=== PATIENT | male | born 1945 | race Caucasian/White ===

== ENCOUNTER 2018-10-13 06:30 | Observation (INO) | payer OTHER ==
[~2018-10-13] VITALS: Ht 167.6 cm; Wt 78.9 kg
[2018-10-13] VITALS (19 sets, daily range): BP systolic 114–159; BP diastolic 70–96
[~2018-10-13 06:30] MED LIST: ASPIRIN325 OR; EFFIENT10 MG PO; FISH OIL 1,2001 EAC3 PO; LIPITOR40 MG PO; LISINOPRIL2.5 MG PO; NITROGLYCERIN0.4 MG SL; SIMVASTATIN80 MG PO; TOPROL XL25 MG PO
[2018-10-13 07:42] LABS: HEMOGLOBIN 14.6 gm/dL (14.0-18.0); MCH 31.9 pg (26.0-34.0); MCHC 34.7 g/dL (28.0-37.0); MCV 91.9 fL (80.0-100.0); RBC 4.57 mil/uL (4.50-6.00); RDW 12.9 % (10.5-14.5); WBC 8.1 thou/uL (4.0-11.0)
[2018-10-13] MEDS ORDERED: CRESTOR20 MG PO (07:43)
[2018-10-13] MEDS ORDERED: BYSTOLIC 5 MG5 M1 PO (07:44)
[2018-10-13] MEDS ORDERED: FLOMAX0.4 MG PO (07:45)
[2018-10-13] MEDS ORDERED: TRAMADOL 50 MG50 MG PO (07:45)
[2018-10-13 07:53] LABS: CALCIUM 9.9 mg/dL (8.5-10.1); POTASSIUM 3.7 mmol/L (3.5-5.1)
[2018-10-14] VITALS: BP 135/77
[2018-10-14 05:13] VITALS: BP 130/70
[2018-10-14 05:37] LABS: HEMOGLOBIN 13.8 gm/dL (14.0-18.0); MCH 32.1 pg (26.0-34.0); MCHC 35.5 g/dL (28.0-37.0); MCV 90.4 fL (80.0-100.0); RBC 4.31 mil/uL (4.50-6.00); RDW 12.5 % (10.5-14.5); WBC 8.7 thou/uL (4.0-11.0)
[2018-10-14 05:55] LABS: ALBUMIN 3.3 g/dL (3.4-5.0); CALCIUM 8.5 mg/dL (8.5-10.1); CREATININE 0.9 mg/dL (0.7-1.3); POTASSIUM 3.6 mmol/L (3.5-5.1); TOTAL BILIRUBIN 1.9 mg/dL (<0.1-1.0); TOTAL PROTEIN 6.8 g/dL (6.4-8.2); TROPONIN-I 0.08 ng/mL (<0.06)
[2018-10-14 07:40] VITALS: BP 134/74
[2018-10-14] MEDS ORDERED: EFFIENT10 MG PO (07:40)
[2018-10-14] MEDS ORDERED: ASPIRIN325 PO (07:40)
[2018-10-14 09:26] VITALS: BP 134/74
--- NOTE | 2018-10-14 13:44 | EKG ---
[place] [address] [facility] [place] [address] ELECTROCARDIOGRAM REPORT Name: JULIO CESAR ANN Room #: 217-[facility].R.#: [id number] Admission: 10/13/18 Attend Phys: Job Solorio MD, Discharge: 10/14/18 Date of : 43 Report #: [id number] THIS REPORT FOR: //name// [facility] Test Date: 2018-10-14 Test Time: 07:46:33 Pat Name: JULIO CESAR ANN Department: Room: 217 Gender: M Probation Agent: [email or web address] : 1945 Requested By: Job Solorio Order Number: [id number] MD: Fito Jarvis Measurements Intervals Mission Rate: 54 P: -7 NC: 172 QRS: 25 QRSD: 93 T: 22 QT: 456 QTc: 433 Interpretive Statements Sinus rhythm Compared to ECG 06/30/2010 07:36:49 Myocardial infarct finding no longer present Electronically Signed On 10-14-2018 13:43:58 CDT by Fito Jarvis [email or web address] <ELECTRONICALLY SIGNED> By: Fito Jarvis MD 10/14/18 1343 D: [id number] 5 Fito Jarvis MD /SHANKAR
--- NOTE | 2018-10-18 17:04 | CATHLAB ---
[facility] [place] [address] INVASIVE PROCEDURE REPORT Name: JULIO CESAR ANN Room #: 217-P [facility] M.R.#: [id number] Admission: 10/13/18 Attend Phys: Job Solorio, Discharge: 10/14/18 Date of : 43 Date of Service: 10/18/18 1703 Report #: [id number] THIS REPORT FOR: //name// APPROVED REPORT Study performed: 10/13/2018 07:46:39 Patient Details The patient is a 72 year-old male Event Personnel Job Solorio Service Member, Gokul Montalvo RTR Eddie Yoder Jeff RN RN, Anisa Singleton RTR, PRODUCTION SUPERVISOR Monitor Procedures Performed Left Heart Cath w/or w/o Coronaries 1512555 [facility] V[facility] Place w/wo Plasty Single LAD 118499 Renal Bilateral Peripheral Angiography 1526177 CVRENALBIL Indication Chest pain Procedure Narrative The Right Groin^ was infiltrated with 1% Lidocaine subcutaneous anesthesia. A PINNACLE 6FR TIF Sheath #[id number] sheath was inserted into the RFA^. Coronary angiography was performed using coronary diagnostic catheters. The right coronary system was accessed and visualized with a JR4 catheter. The left coronary system was accessed and visualized with a JL4 catheter. The left ventricle was accessed and visualized with a PIGTAIL catheter. Left ventriculogram was performed in SMITH projection. An aortogram of the abdominal aorta was performed. Closure device was deployed with a Fr MYNXGRIP 6/7F #[id number]. The patient tolerated the procedure well and there were no complications associated with the procedure. Intraoperative Conscious Sedation Sedation start time: 08 Case end Time: 929 Fentanyl 50 mcg Versed 1 mg Fluoro Time: 10.50 minutes Dose: DAP 54711.20 cGycm2 1342 mGy Contrast Type and Amount: Omnipaque 170 ml [facility] [place] [place] [address] INVASIVE PROCEDURE REPORT Name: JULIO CESAR ANN Room #: 217-P [facility] M.R.#: [id number] Admission: 10/13/18 Attend Phys: Job Solorio, Discharge: 10/14/18 Date of : 43 Date of Service: 10/18/18 1703 Report #: [id number] Hemodynamics The aortic pressure is 154/57 mmHg with a mean of 101 mmHg. The left ventricular pressure is 157/15 mmHg with a mean of mmHg. The left ventricular end diastolic pressure is 29 mmHg. PCI Technique Lesion Anticoagulation was achieved with Heparin. Percutaneous coronary intervention was performed on the proximal left anterior descending artery segment. A LAUNCHER 6FR EBU 3.5 #[id number] Guide Catheter was used to engage the ostium. A Luge Wire .014 x 182CM #[id number] Interventional Guidewire was used to cross the lesion. BALLOON DILATION A Balloon catheter Sprinter OTW 2.25 x 12 #[id number] was inserted and inflated up to 8.00atm for 15seconds. Additional Inflation: 8.00atm for 10seconds. Additional Inflation: 8.00atm for 11seconds. STENT DEPLOYMENT A stent RESOLUTE IMMANUEL OTW 2.25 X 12 #[id number] was inserted and inflated up to 14.00atm for 31seconds. Conclusion #1 normal left ventricular size and systolic function EF 55% #2 abdominal aortogram revealing a small infrarenal bilobed aortic aneurysm we will evaluate noninvasively moderate calcification and iliac disease noted #3 successful PTCA stent of the proximal LAD with a 2.25 x 12 Crowley resolute stent postdilated 2.4 mm LUCINDA grade 3 flow and a type I LAD with no residual #4 left main mildly disease giving rise to LAD and circumflex #5 circumflex small nondominant no occlusive disease #6 large dominant right coronary R with prior multiple stents with only mild in-stent restenosis extensively filling the inferior and provides some competitive filling to the occluded LAD prior to its intervention. Recommendations and plan: Continue aggressive risk factor modification dual antiplatelet therapy. Transfer to CCU in stable condition. <ELECTRONICALLY SIGNED> By: Job Solorio MD, [facility] 10/18/181702 02 02 Job Solorio MD, FAC /INF
== END 2018-10-14 10:05 | disposition home or self-care (01) ==
LOC: CATH 06:30 → 2N 09:41 → CATH 12:58 → ENTRNSPT 10-14 09:51 → EDTRNSPTSTS 10-14 09:54 → 2N 10-14 10:05
PROVIDERS: ADMIT Internal Medicine Cardiovascular Disease
DX: I25.10 Atherosclerotic heart disease of native coronary artery without angina pectoris (principal); I10 Essential (primary) hypertension; E78.5 Hyperlipidemia, unspecified; I71.4 Abdominal aortic aneurysm, without rupture; I25.5 Ischemic cardiomyopathy; Z79.82 Long term (current) use of aspirin; Z79.899 Other long term (current) drug therapy; Z95.5 Presence of coronary angioplasty implant and graft

== ENCOUNTER → 2019-09-25 | Outpatient (CLI) | payer OTHER ==
[~2019-09-25] MED LIST changes: +ASPIRIN325 PO; +BYSTOLIC 5 MG5 M1 PO; +CRESTOR20 MG PO; +FLOMAX0.4 MG PO; +TRAMADOL 50 MG50 MG PO
== END ==
LOC: SJCVCIMAG 10:28
PROVIDERS: ATTEND Internal Medicine Cardiovascular Disease
DX: R00.1 Bradycardia, unspecified (principal); R53.83 Other fatigue; I25.10 Atherosclerotic heart disease of native coronary artery without angina pectoris; I10 Essential (primary) hypertension; E78.5 Hyperlipidemia, unspecified; Z98.61 Coronary angioplasty status

== ENCOUNTER → 2020-06-14 | Outpatient (CLI) | payer OTHER | LOC: SJCVC 14:45 | PROVIDERS: ATTEND Internal Medicine Cardiovascular Disease | DX: I10 Essential (primary) hypertension (principal); I25.10 Atherosclerotic heart disease of native coronary artery without angina pectoris; E78.00 Pure hypercholesterolemia, unspecified; I65.23 Occlusion and stenosis of bilateral carotid arteries; I71.4 Abdominal aortic aneurysm, without rupture; R53.83 Other fatigue; I42.9 Cardiomyopathy, unspecified; Z79.82 Long term (current) use of aspirin; Z79.899 Other long term (current) drug therapy; Z87.891 Personal history of nicotine dependence ==